=== PATIENT | female | born 1995 | race Asian ===

== ENCOUNTER 2020-02-12 11:11 | Emergency (ER) | payer OTHER ==
[2020-02-12 12:51] VITALS: BP 107/68
--- NOTE | 2020-02-12 12:54 | Emergency Department Report ---
HPI - General Chief Complaint: Allergic Reaction Time Seen by Provider: 02/12/20 12:47 ED Past Medical Hx - Past Medical History Previous Medical History?: No - Surgical History Past Surgical History?: No - Social History Smoking Status: Never Smoker - Medications Home Medications: Home Medications Medication Instructions Recorded Confirmed Last Taken Type Nitrofurantoin [place]/M-Cryst 100 mg PO Q12HR #14 capsule 05/19/15 Unknown Rx [Macrobid CAP] Phenazopyridine [Pyridium] 100 mg PO TID #6 tab 05/19/15 Unknown Rx ED Review of Systems ROS: Stated complaint: HIVES ALL OVER BODY Other details as noted in HPI Critical care attestation.: If time is entered above; I have spent that time in minutes in the direct care of this critically ill patient, excluding procedure time. ED Disposition Condition: Stable
--- NOTE | 2020-02-12 12:56 | Event Note ---
ED Screening Note Date of service: 02/12/20 Time: 12:54 ED Screening Note: Patient complains of itchy rash diffusely on body x2 weeks. On exam she has petechial red spots scattered On images shown on her phone, she shows a significantly worse rash that also affects the palms She denies any recent travel or fever Patient states her symptoms started after using some type of vaginal beats This initial assessment/diagnostic orders/clinical plan/treatment(s) is/are subject to change based on patients health status, clinical progression and re- assessment by fellow clinical providers in the ED. Further treatment and workup at subsequent clinical providers discretion. Patient/guardian urged not to elope from the ED as their condition may be serious if not clinically assessed and managed. Initial orders include:
[2020-02-12] MEDS ORDERED: diphenhydrAMINE 25 MG CAP PO ONE (13:13)
[2020-02-12] MEDS ORDERED: predniSONE 20 MG TAB PO ONE (13:13)
[2020-02-12] MEDS ORDERED: FAMOTIDINE 20 MG TAB PO ONE (13:13)
--- NOTE | 2020-02-12 14:07 | Emergency Department Report ---
ED Allergic Reaction HPI - General Chief complaint: Allergic Reaction Stated complaint: HIVES ALL OVER BODY Time Seen by Provider: 02/12/20 12:47 Source: patient Mode of arrival: Ambulatory Limitations: No Limitations - History of Present Illness Initial Comments: This is a 24-year-old female who presents to the ED complaining of hives for the past 4 days. Patient states her eyes generate all over her body and resolved. Patient states that she was seen earlier by clinic and given Benadryl with no relief. Patient states that her sister just got a new cat so she is unsure if that is what causing the hives. Patient also states that she recently inserted some vaginal detoxing beads and is unsure if that will causing the hives. She denies difficulty swallowing, chills, chest pain or shortness of breath or difficulty breathing. MD Complaint: allergic reaction, hives - Related Data Previous Rx's Medication Instructions Recorded Last Taken Type Nitrofurantoin [place]/M-Cryst 100 mg PO Q12HR #14 capsule 05/19/15 Unknown Rx [Macrobid CAP] Phenazopyridine [Pyridium] 100 mg PO TID #6 tab 05/19/15 Unknown Rx predniSONE [Deltasone] 20 mg PO QDAY #4 tab 02/12/20 Unknown Rx Allergies Allergy/AdvReac Type Severity Reaction Status Date / Time No Known Allergies Allergy Unverified 05/19/15 14:04 ED Review of Systems ROS: Stated complaint: HIVES ALL OVER BODY Other details as noted in HPI Comment: All other systems reviewed and negative ED Past Medical Hx - Past Medical History Previous Medical History?: No - Surgical History Past Surgical History?: No - Social History Smoking Status: Never Smoker Substance Use Type: None - Medications Home Medications: Home Medications Medication Instructions Recorded Confirmed Last Taken Type Nitrofurantoin [place]/M-Cryst 100 mg PO Q12HR #14 capsule 05/19/15 Unknown Rx [Macrobid CAP] Phenazopyridine [Pyridium] 100 mg PO TID #6 tab 05/19/15 Unknown Rx predniSONE [Deltasone] 20 mg PO QDAY #4 tab 02/12/20 Unknown Rx ED Physical Exam - General Limitations: No Limitations General appearance: alert, in no apparent distress - Head Head exam: Present: atraumatic, normocephalic - Eye Eye exam: Present: normal appearance - ENT ENT exam: Present: mucous membranes moist - Neck Neck exam: Present: normal inspection - Respiratory Respiratory exam: Present: normal lung sounds bilaterally. Absent: respiratory distress - Cardiovascular Cardiovascular Exam: Present: regular rate, normal rhythm. Absent: systolic murmur, diastolic murmur, rubs, gallop - GI/Abdominal GI/Abdominal exam: Present: soft, normal bowel sounds - Extremities Exam Extremities exam: Present: normal inspection - Back Exam Back exam: Present: normal inspection - Neurological Exam Neurological exam: Present: alert, oriented X3 - Psychiatric Psychiatric exam: Present: normal affect, normal mood - Skin Skin exam: Present: warm, dry, intact, normal color, other (Patient covered in calamine lotion from head to toe. No rash noted no hives noted). Absent: rash ED Course Vital Signs 02/12/20 12:48 Temperature 98.3 F Pulse Rate 87 Respiratory 16 Rate Blood Pressure 107/68 O2 Sat by Pulse 98 Oximetry ED Medical Decision Making - Medical Decision Making 24-year-old female presents with intermittent hives that resolved. Patient states that hives come and go intermittently and she is unsure why. Patient given Benadryl Pepcid and prednisone in the ED today. Patient is in no acute or respiratory distress. Discussed with patient to follow-up with primary care physician. Patient will be discharged home with short course of prednisone. I did discuss the patient to continue taking Benadryl and using calamine lotion as she has. Critical care attestation.: If time is entered above; I have spent that time in minutes in the direct care of this critically ill patient, excluding procedure time. ED Disposition Clinical Impression: Hives, Allergic reaction Disposition: DC-01 TO HOME OR SELFCARE Is pt being admited?: No Does the pt Need Aspirin: No Condition: Stable Instructions: Urticaria (ED) Additional Instructions: Make sure to follow up with the primary care physician as discussed. Take all your medications as you've been prescribed. If you have any worsening symptoms or develop new symptoms please return to ED immediately. Prescriptions: predniSONE [Deltasone] 20 mg PO QDAY #4 tab Referrals: [facility] [Outside] - 3-5 Days [facility] [Provider Group] - 3-5 Days Forms: Accompanied Note, Work/School Release Form(ED) Time of Disposition: 14:11
== END 2020-02-12 14:25 | disposition home or self-care (01) ==
LOC: ED 11:11
DX: T78.49XA Other allergy, initial encounter (principal); L50.9 Urticaria, unspecified; Z79.899 Other long term (current) drug therapy; X58.XXXA Exposure to other specified factors, initial encounter
CPT/HCPCS: 99282; J7512